=== PATIENT | female | born 1955 | race Caucasian/White ===

== ENCOUNTER 2024-10-13 07:00 | Day surgery (SDC) | payer MEDICARE, OTHER ==
[~2024-10-13 07:00] MED LIST: Sodium Chloride 0.9% 10 ML Syringe FLUSH PRN
[2024-10-13] MEDS ORDERED: Midazolam 1 MG/ML 2 ML SDV IV ONE (07:01)
[2024-10-13] MEDS ORDERED: Lidocaine 2% 100 MG/5 ML Syringe IVPUSH ONE (07:01)
[2024-10-13] MEDS ORDERED: Propofol 200 MG/20 ML SDV IV ONE (07:01)
[2024-10-13] MEDS: Lactated Ringers 1,000 ML IV SCH (07:47)
[2024-10-13] MEDS: Simethicone Drops 40 MG/0.6 ML 30 ML Bottle PO ONE (08:19)
== END 2024-10-13 09:55 | disposition home or self-care (01) ==
LOC: FB.SDS 07:00
PROVIDERS: ATTEND Surgery
DX: Z12.11 Encounter for screening for malignant neoplasm of colon (principal); Q43.8 Other specified congenital malformations of intestine; I10 Essential (primary) hypertension; E66.9 Obesity, unspecified; Z79.01 Long term (current) use of anticoagulants; Z79.899 Other long term (current) drug therapy; Z79.84 Long term (current) use of oral hypoglycemic drugs; Z91.09 Other allergy status, other than to drugs and biological substances; Z91.018 Allergy to other foods; Z87.891 Personal history of nicotine dependence; Z68.32 Body mass index [BMI] 32.0-32.9, adult
CPT/HCPCS: A9270-GY; J2250; J2704; J7120